=== PATIENT | female | born 2005 | race Two or more races ===

== ENCOUNTER 2023-09-30 12:48 | Emergency (ER) | payer MEDICAID ==
[~2023-09-30] VITALS: Ht 165.1 cm; Wt 95.8 kg
[2023-09-30 14:20] LABS: Basophils # (auto) 0.1 10 ^3/uL (0-0.2); Basophils % (auto) 0.5 % (0.0-2.0); Eosinophils # (auto) 0 10 ^3/uL (0-0.8); Eosinophils % (auto) 0.3 % (0.0-7.0); Hematocrit 40.8 % (36.0-46.0); Hemoglobin 14.6 g/dL (12.2-16.2); Lymphocytes # (auto) 2.2 10 ^3/uL (0.4-5.4); Lymphocytes % (auto) 13.7 % (10.0-50.0); Mean Corpuscular Hgb Conc. 35.7 g/dL (32.0-36.0); Mean Corpuscular Volume 81.1 fL (80.0-100.0); Monocytes # (auto) 0.8 10 ^3/uL (0-1.3); Monocytes % (auto) 5.3 % (0.0-12.0); Neutrophils # (auto) 12.6 10 ^3/uL (1.6-8.6); Neutrophils % (auto) 80.2 % (37.0-80.0); Nucleated Red Blood Cells % 0.1 %; Red Blood Cells 5.03 10^6/uL (4.0-5.20); Red Cell Distribution Width 13.8 % (11.8-14.3); White Blood Cell 15.7 10^3/uL (4.4-10.8)
[2023-09-30 14:27] LABS: Urine Bacteria None Seen /hpf (None Seen)
[2023-09-30 14:43] LABS: Urine Blood Negative /uL (Negative); Urine Clarity Clear (Clear); Urine Color Yellow (Yellow); Urine Mucus FEW (None Seen); Urine Protein, UAD Negative (Negative); Urine Urobilinogen Normal (Negative); Urine WBC 13 /hpf (0 - 5); Urine pH 5.5 (5.0-9.0)
[2023-09-30 16:25] VITALS: BP 111/64; PULSE 82; RESP 16; TEMP 98.2; O2SAT 97
== END 2023-09-30 16:45 | disposition home or self-care (01) ==
LOC: ER 12:48
DX: O20.0 Threatened abortion (principal); R10.2 Pelvic and perineal pain; Z3A.01 Less than 8 weeks gestation of pregnancy
CPT/HCPCS: 36415; 76801; 81001; 81025; 84702; 85025

== ENCOUNTER 2024-01-05 07:44 | Observation (INO) | payer MEDICAID ==
[~2024-01-05] VITALS: Ht 165.1 cm; Wt 91.6 kg
[2024-01-05] MEDS ORDERED: PREN-96 PO (08:50)
== END 2024-01-05 09:34 | disposition home or self-care (01) ==
LOC: LDRP 07:44
PROVIDERS: ADMIT Obstetrics & Gynecology; ATTEND Obstetrics & Gynecology
DX: O34.62 Maternal care for abnormality of vagina, second trimester (principal); N89.8 Other specified noninflammatory disorders of vagina; Z79.899 Other long term (current) drug therapy; Z98.890 Other specified postprocedural states; Z3A.21 21 weeks gestation of pregnancy
CPT/HCPCS: 59025; 76815; 81002; 94760; G0378

== ENCOUNTER 2024-03-01 20:56 | Observation (INO) | payer MEDICAID ==
[~2024-03-01 20:56] MED LIST: PREN-96 PO
--- NOTE | 2024-03-01 22:08 | DVHDS2 ---
Physician Discharge Progress N Final Diagnosis: UTI Problems List: (1) UTI (urinary tract infection) during (2) 29 weeks gestation of Operations or Procedures: Operations or Procedures 18yo IUP@29.3wks presents to OB triage with c/o DFM and only drank 3 cups of water today. Denies UCs/VB. PNC with Dr. Rogers, uncomplicated. VSS UA: +nitrites NST reactive TOCO: no UCs PO hydrated FKC/PTL precautions reviewed. Rx sent for macrobid. Condition on Discharge: Stable Disposition: Home Discharge Instructions: Diet: Regular Activity: No Restrictions, As Tolerated Medications: see med list Follow Up Care: Specialist: f/u with Dr. Rogers as scheduled Discharge Statement: "Patient was advised to return to the ER or call 911 if any headaches, dizziness, shortness of breath, chest pain, abdominal pain, bleeding, fevers, or worsening of medical condition. Patient was counseled about treatment plan, medications, possible side effects, patientverbalized understanding. All questions were answered to the best of my ability. This discharge took greater then 30 minutes in planning, reviewing documentation, counseling the patient, and discussing with other team members." KEENAN ARAIZA CNM Mar 01, 2024 22:08
[2024-03-01] MEDS ORDERED: NITR-87 PO (22:09)
== END 2024-03-01 22:25 | disposition home or self-care (01) ==
LOC: LDRP 20:56
PROVIDERS: ADMIT Obstetrics & Gynecology; ATTEND Obstetrics & Gynecology
DX: O23.43 Unspecified infection of urinary tract in pregnancy, third trimester (principal); N39.0 Urinary tract infection, site not specified; Z3A.29 29 weeks gestation of pregnancy; Z79.899 Other long term (current) drug therapy
CPT/HCPCS: 59025; 81002; 94760; G0378

== ENCOUNTER 2024-04-17 12:05 | Observation (INO) | payer MEDICAID ==
[~2024-04-17 12:05] MED LIST changes: +NITR-87 PO
--- NOTE | 2024-04-17 13:34 | DVH ---
BIOPHYSICAL PROFILE HISTORY: Late entry/limited PNC TECHNIQUE: Multiple transabdominal real-time grayscale sonographic images through the gravid uterus of the fetus with duplex Doppler color flow and M-mode spectral analysis FINDINGS: BIOPHYSICAL PROFILE: breathing score: 2 movement score: 2 tone score: 2 Quantitative JOSH score: 2 (JOSH: 11.9 Cm.) Total score: 8 The cervix was not seen Single live fetus in cephalic presentation. heart rate 168 beats per minute. Grade II posterior placenta without previa or abruption Single live fetus at 36 weeks 3 days Biophysical profile score 8/8 corresponding to an DESTINEE of 2-28-25 Estimated weight 2888 g IMPRESSION: Biophysical profile score: 8
[2024-04-17 14:02] LABS: Basophils # (auto) 0 10 ^3/uL (0-0.2); Basophils % (auto) 0.3 % (0.0-2.0); Eosinophils # (auto) 0.1 10 ^3/uL (0-0.8); Eosinophils % (auto) 0.4 % (0.0-7.0); Hematocrit 40.8 % (36.0-46.0); Hemoglobin 14.4 g/dL (12.2-16.2); Lymphocytes # (auto) 1.5 10 ^3/uL (0.4-5.4); Lymphocytes % (auto) 10.5 % (10.0-50.0); Mean Corpuscular Hemoglobin 28.8 pg (28.0-32.0); Mean Corpuscular Hgb Conc. 35.2 g/dL (32.0-36.0); Mean Corpuscular Volume 81.8 fL (80.0-100.0); Monocytes # (auto) 0.9 10 ^3/uL (0-1.3); Monocytes % (auto) 6.1 % (0.0-12.0); Neutrophils # (auto) 11.8 10 ^3/uL (1.6-8.6); Neutrophils % (auto) 82.7 % (37.0-80.0); Nucleated Red Blood Cells % 0.2 %; Platelet Count (auto) 207 10^3/uL (140-450); Red Blood Cells 4.99 10^6/uL (4.0-5.20); Red Cell Distribution Width 14.7 % (11.8-14.3); White Blood Cell 14.2 10^3/uL (4.4-10.8)
[2024-04-17 14:24] LABS: Alanine Aminotransferase 11 U/L (7-40); Albumin 3.8 g/dL (3.2-4.8); Anion Gap 11 (5-15); Aspartate Aminotransferase 21 U/L (13-40); BUN/Creatinine Ratio 9.3 (10.0-20.0); Calcium 10.1 mg/dL (8.7-10.4); Carbon Dioxide 21 mmol/L (20-31); Chloride 105 mmol/L (98-107); Glucose 79 mg/dL (74-106); Potassium 4.1 mmol/L (3.5-5.1); Sodium 137 mmol/L (136-145); Uric Acid 5.5 mg/dL (3.1-7.8)
[2024-04-17 14:25] LABS: Alkaline Phosphatase 178 U/L (46-116); Bilirubin, Total 0.6 mg/dL (0.2-1.0); Blood Urea Nitrogen 5 mg/dL (9-23); Total Protein 6.3 g/dL (5.7-8.2)
[2024-04-17 15:02] LABS: INR 0.95 (0.9-1.15); Partial Thromboplastin Time 28.5 SEC (24.5-34.5); Prothrombin Time 10.1 sec (9.3-11.8)
[2024-04-17 15:05] LABS: Urine Bacteria None Seen /hpf (None Seen)
[2024-04-17 15:21] LABS: Urine Blood Negative /uL (Negative); Urine Clarity Clear (Clear); Urine Color Light-Yellow (Yellow); Urine Protein, UAD Negative (Negative); Urine Specific Gravity 1.014 (1.001-1.035); Urine Squamous Epithelial Cell FEW /hpf (<5); Urine Urobilinogen Normal (Negative); Urine WBC 2 /HPF (0-5); Urine pH 6.5 (5.0-9.0)
[2024-04-17 15:33] LABS: Protein, Urine 19.4 mg/dL (1-14)
[2024-04-17 15:36] LABS: Creatinine, Urine 73.79 mg/dL (30.0-125.0); Urine Protein/Creatinine Ratio 0.26
--- NOTE | 2024-04-17 21:30 | DVHDS2 ---
Physician Discharge Progress N Final Diagnosis: Late entry/limited PNC Operations or Procedures: Operations or Procedures NST and BPP/ Ultrasound OB limited PIH labs Commentary: Commentary all testing normal BP's normal Condition on Discharge: Stable Disposition: Home Discharge Instructions: Diet: Regular Activity: No Restrictions, As Tolerated Follow Up/Referral: as scheduled, per Dr. Rogers Medications: N/A Follow Up Care: Discharge Statement: "Patient was advised to return to the ER or call 911 if any headaches, dizziness, shortness of breath, chest pain, abdominal pain, bleeding, fevers, or worsening of medical condition. Patient was counseled about treatment plan, medications, possible side effects, patientverbalized understanding. All questions were answered to the best of my ability. This discharge took greater then 30 minutes in planning, reviewing documentation, counseling the patient, and discussing with other team members." JUVENAL CARABALLO DO Apr 17, 2024 21:30
== END 2024-04-17 15:13 | disposition home or self-care (01) ==
LOC: LDRP 12:05
PROVIDERS: ADMIT Obstetrics & Gynecology; ATTEND Obstetrics & Gynecology
DX: O09.33 Supervision of pregnancy with insufficient antenatal care, third trimester (principal); Z98.890 Other specified postprocedural states; Z79.899 Other long term (current) drug therapy; Z3A.36 36 weeks gestation of pregnancy; Z86.2 Personal history of diseases of the blood and blood-forming organs and certain disorders involving the immune mechanism
CPT/HCPCS: 36415; 59025; 76805; 76818; 80053; 81001; 81002; 82570; 84156; 84550; 85025; 85384; 85610; 85730; 87081; 87086; 94760; G0378

== ENCOUNTER 2024-04-19 14:49 | Observation (INO) | payer MEDICAID ==
[2024-04-19] MEDS ORDERED: TERBUTALINE SULFATE 1 MG/ML 1ML VIAL SC SCH (17:00)
[2024-04-19] MEDS ORDERED: NIFEdipine 10 MG CAP PO ONE (17:00)
--- NOTE | 2024-04-19 17:28 | DVH ---
BIOPHYSICAL PROFILE HISTORY: PIH TECHNIQUE: Multiple transabdominal real-time grayscale sonographic images through the gravid uterus of the fetus with duplex Doppler color flow and M-mode spectral analysis Comparison: 04/17/2024 FINDINGS: BIOPHYSICAL PROFILE: breathing score: 2 movement score: 2 tone score: 2 Quantitative JOSH score: 2 (JOSH: 11.5 Cm.) Total score: 8 The cervix is not well-visualized Single live fetus in cephalic presentation. heart rate 144 beats per minute. Posterior placenta without previa or abruption IMPRESSION: Biophysical profile score: 8
--- NOTE | 2024-04-19 18:50 | DVHDS2 ---
Physician Discharge Progress N Final Diagnosis: gestational HTN Operations or Procedures: Operations or Procedures S: 18 y.o. @ 36.3 weeks presents to OB triage due to her BP reading at home of 145/98. Patient denies any visual changes, pain in abdomen, and/or headache. Patient states +FM; denies UCs, LOF, VB O: VSS; normotensive (see chart) UA dip WNL NST reactive Urine P/C ratio 0.26 on 04/17/2024 A: 18 y.o. @ 36.3 weeks Gestation Hypertension P: D/C home kick counts/ PTL precautions/ Pre-e precautions given [address] Rogers consulted, agrees with POC Other Interventions Other Interventions [place] [address] Ph: [phone] DIAGNOSTIC IMAGING Diagnostic Imaging Report : [id number] Signed PATIENT: MAAME CHRISTINECCT: [id number] UNIT: [id number] : 2005 LOC: [facility] ROOM / BED: TRIAGE2 / A AGE / SEX: 18 / F ADM STATUS: ADM IN SERVICE [id number] ORDERING PHYSICIAN: KEENAN ARAIZA CNM PROCEDURE(s): BPP - BIOPHYSICAL PROFILE REASON: [facility] ORDER NUMBER(s): [id number], ACCESSION NUMBER(s): [id number] BIOPHYSICAL PROFILE HISTORY: [facility] TECHNIQUE: Multiple transabdominal real-time grayscale sonographic images through the gravid uterus of the fetus with duplex Doppler color flow and M-mode spectral analysis Comparison: 04/17/2024 FINDINGS: BIOPHYSICAL PROFILE: breathing score: 2 movement score: 2 tone score: 2 Quantitative JOSH score: 2 (JOSH: 11.5 Cm.) Total score: 8 The cervix is not well-visualized Single live fetus in cephalic presentation. heart rate 144 beats per mi nute. Posterior placenta without previa or abruption IMPRESSION: Biophysical profile score: 8 ATED BY: ALICIA JETT DO DICTATED DATE/TIME: 04/19/24 1726 SIGNED BY: ALICIA JETT DO SIGNED DATE/TIME: 04/19/24 1726 Condition on Discharge: Stable Disposition: Home Discharge Instructions: Diet: Regular Activity: No Restrictions, As Tolerated Medications: see med list Follow Up Care: Specialist: Follow up on Wednesday04/22/2024 with 24 hour urine collection Discharge Statement: "Patient was advised to return to the ER or call 911 if any headaches, dizziness, shortness of breath, chest pain, abdominal pain, bleeding, fevers, or worsening of medical condition. Patient was counseled about treatment plan, medications, possible side effects, patientverbalized understanding. All questions were answered to the best of my ability. This discharge took greater then 30 minutes in planning, reviewing documentation, counseling the patient, and discussing with other team members." JORGE LUIS BEST MDWF Apr 19, 2024 18:50
== END 2024-04-19 17:09 | disposition home or self-care (01) ==
LOC: LDRP 14:49 → UNDOADMOB 15:43 → UNDODISOB 17:09
PROVIDERS: ADMIT Obstetrics & Gynecology; ATTEND Obstetrics & Gynecology
DX: O13.3 Gestational [pregnancy-induced] hypertension without significant proteinuria, third trimester (principal); Z3A.36 36 weeks gestation of pregnancy; Z79.899 Other long term (current) drug therapy
CPT/HCPCS: 59025; 76818; 81002; 94760; G0378

== ENCOUNTER 2024-04-22 08:42 | Observation (INO) | payer MEDICAID ==
[2024-04-22 09:34] LABS: Urine Bacteria FEW /hpf (None Seen); Urine Blood Negative /uL (Negative); Urine Color Light-Yellow (Yellow); Urine Protein, UAD Negative (Negative); Urine Specific Gravity 1.014 (1.001-1.035); Urine Squamous Epithelial Cell MOD /hpf (<5); Urine Urobilinogen Normal (Negative); Urine WBC 76 /HPF (0-5)
--- NOTE | 2024-04-22 09:35 | DVHDS2 ---
Physician Discharge Progress N Final Diagnosis: IUP 36 wk gestational HTN Operations or Procedures: Operations or Procedures NST/BPP JOSH Urine prot neg Condition on Discharge: Stable Disposition: Home Discharge Instructions: Diet: Regular Activity: Light activity Follow Up/Referral: As scheduled. Medications: None Follow Up Care: Discharge Statement: "Patient was advised to return to the ER or call 911 if any headaches, dizziness, shortness of breath, chest pain, abdominal pain, bleeding, fevers, or worsening of medical condition. Patient was counseled about treatment plan, medications, possible side effects, patientverbalized understanding. All questions were answered to the best of my ability. This discharge took greater then 30 minutes in planning, reviewing documentation, counseling the patient, and discussing with other team members." Visit Coding OBGYN Date of Service: Apr 22, 2024 Billing Provider: JUVENAL CARABALLO DO PARKING ENFORCEMENT TECHNICIAN Common Visit Codes: 85681-HFA/OBS SAME DATE (MOD) PARKING ENFORCEMENT TECHNICIAN Procedure Codes: 44098-79- NON-STRESS TEST JUVENAL CARABALLO DO Apr 22, 2024 09:34
[2024-04-22 09:36] LABS: Urine Clarity Cloudy (Clear)
[2024-04-22 09:44] LABS: Protein, Urine 20.2 mg/dL (1-14)
[2024-04-22 09:46] LABS: Creatinine, Urine 92.41 mg/dL (30.0-125.0); Urine Protein/Creatinine Ratio 0.22
--- NOTE | 2024-04-22 10:10 | DVH ---
BIOPHYSICAL PROFILE HISTORY: PIH TECHNIQUE: Multiple transabdominal real-time grayscale sonographic images through the gravid uterus of the fetus with duplex Doppler color flow and M-mode spectral analysis FINDINGS: BIOPHYSICAL PROFILE: breathing score: 2 movement score: 2 tone score: 2 Quantitative JOSH score: 2 (JOSH: 10.1 Cm.) Total score: 8.8 Single live fetus in cephalic presentation. heart rate 138 beats per minute. Posterior placenta without previa or abruption. IMPRESSION: 1. Biophysical profile score: 8/8.
[2024-04-22 11:37] LABS: 24 Hr. Total Protein, Urine 131.3 mg/24 Hr (<149.1)
== END 2024-04-22 10:26 | disposition home or self-care (01) ==
LOC: LDRP 08:42
PROVIDERS: ADMIT Obstetrics & Gynecology; ATTEND Obstetrics & Gynecology
DX: O13.3 Gestational [pregnancy-induced] hypertension without significant proteinuria, third trimester (principal); Z98.890 Other specified postprocedural states; Z79.899 Other long term (current) drug therapy; Z3A.36 36 weeks gestation of pregnancy
CPT/HCPCS: 59025; 76818; 81001; 81002; 82570; 84156; 94760; G0378

== ENCOUNTER 2024-04-24 12:04 | Observation (INO) | payer MEDICAID ==
--- NOTE | 2024-04-24 12:56 | DVH ---
BIOPHYSICAL PROFILE HISTORY: PIH TECHNIQUE: Multiple transabdominal real-time grayscale sonographic images through the gravid uterus of the fetus with duplex Doppler color flow and M-mode spectral analysis FINDINGS: BIOPHYSICAL PROFILE: breathing score: 2 movement score: 2 tone score: 2 Quantitative JOSH score: 2 (JOSH: 10.2 Cm.) Total score: 8 The cervix not well visualized. Single live fetus in vertex presentation. heart rate 136 beats per minute. Left lateral placenta without previa or abruption IMPRESSION: Biophysical profile score: 8
--- NOTE | 2024-04-24 17:11 | DVHDS2 ---
Physician Discharge Progress N Final Diagnosis: IUP 37 wk, Gestational HTN Operations or Procedures: Operations or Procedures NST/BPP/JOSH all WNL Condition on Discharge: Stable Disposition: Home Discharge Instructions: Diet: Regular Activity: No Restrictions, As Tolerated Follow Up/Referral: as scheduled Medications: N/A Follow Up Care: Discharge Statement: "Patient was advised to return to the ER or call 911 if any headaches, dizziness, shortness of breath, chest pain, abdominal pain, bleeding, fevers, or worsening of medical condition. Patient was counseled about treatment plan, medications, possible side effects, patientverbalized understanding. All questions were answered to the best of my ability. This discharge took greater then 30 minutes in planning, reviewing documentation, counseling the patient, and discussing with other team members." Visit Coding OBGYN Date of Service: Apr 24, 2024 Billing Provider: JUVENAL CARABALLO DO CUTLET MAKER PORK Common Visit Codes: 19856-KKA/OBS SAME DATE (MOD) C[employer]ER [employer] Procedure Codes: 83895-80- NON-STRESS TEST JUVENAL CARABALLO DO Apr 24, 2024 17:11
== END 2024-04-24 13:30 | disposition home or self-care (01) ==
LOC: LDRP 12:04 → UNDOADMOB 12:04 → LDRP 12:16 → UNDODISOB 13:30
PROVIDERS: ADMIT Obstetrics & Gynecology; ATTEND Obstetrics & Gynecology
DX: O13.3 Gestational [pregnancy-induced] hypertension without significant proteinuria, third trimester (principal); Z98.890 Other specified postprocedural states; Z79.899 Other long term (current) drug therapy; Z3A.37 37 weeks gestation of pregnancy
CPT/HCPCS: 59025; 76818; 81002; 94760; G0378

== ENCOUNTER 2024-04-27 11:25 | Observation (INO) | payer MEDICAID ==
[~2024-04-27 11:25] MED LIST changes: -NITR-87 PO
--- NOTE | 2024-04-27 12:43 | DVH ---
BIOPHYSICAL PROFILE HISTORY: PIH Comparison Study: None TECHNIQUE: Multiple real-time grayscale sonographic images through the gravid uterus of the fetus wi th duplex Doppler color flow and M-mode spectral analysis FINDINGS: BIOPHYSICAL PROFILE: breathing score: 2 movement score: 2 tone score: 2 Quantitative JOSH score: 2 (JOSH: 11.1 Cm.) Total score: 8 The cervix is not visualized Single live fetus in cephalic presentation. heart rate 153 beats per minute. Posterior placenta without previa or abruption IMPRESSION: Biophysical profile score: 8
--- NOTE | 2024-04-28 05:53 | DVHDS2 ---
Physician Discharge Progress N Final Diagnosis: PIH Operations or Procedures: Operations or Procedures NST,SONO Condition on Discharge: Good Disposition: Home Discharge Instructions: Diet: Regular Activity: No Restrictions, As Tolerated Medications: NA Follow Up Care: Specialist: 4D Discharge Statement: "Patient was advised to return to the ER or call 911 if any headaches, dizziness, shortness of breath, chest pain, abdominal pain, bleeding, fevers, or worsening of medical condition. Patient was counseled about treatment plan, medications, possible side effects, patientverbalized understanding. All questions were answered to the best of my ability. This discharge took greater then 30 minutes in planning, reviewing documentation, counseling the patient, and discussing with other team members." Visit Coding OBGYN Date of Service: Apr 27, 2024 Billing Provider: HAIR RUBI DO PHARMACY TECH Common Visit Codes: 30816-KAO/OBS SAME DATE (HIGH) PHARMACY TECH Procedure Codes: 52487-70- NON-STRESS TEST HAIR RUBI DO Apr 28, 2024 05:53
== END 2024-04-27 14:17 | disposition home or self-care (01) ==
LOC: LDRP 11:25
PROVIDERS: ADMIT Obstetrics & Gynecology; ATTEND Obstetrics & Gynecology
DX: O13.3 Gestational [pregnancy-induced] hypertension without significant proteinuria, third trimester (principal); Z3A.37 37 weeks gestation of pregnancy; Z79.899 Other long term (current) drug therapy
CPT/HCPCS: 59025; 76818; 81002; 94760; G0378

== ENCOUNTER 2024-05-04 10:25 | Observation (INO) | payer MEDICAID ==
[2024-05-04 12:09] LABS: Basophils # (auto) 0 10 ^3/uL (0-0.2); Basophils % (auto) 0.3 % (0.0-2.0); Eosinophils # (auto) 0 10 ^3/uL (0-0.8); Eosinophils % (auto) 0.3 % (0.0-7.0); Hematocrit 43.3 % (36.0-46.0); Lymphocytes # (auto) 1.3 10 ^3/uL (0.4-5.4); Lymphocytes % (auto) 9.8 % (10.0-50.0); Mean Corpuscular Hemoglobin 28.4 pg (28.0-32.0); Mean Corpuscular Hgb Conc. 34.5 g/dL (32.0-36.0); Mean Corpuscular Volume 82.2 fL (80.0-100.0); Monocytes # (auto) 0.7 10 ^3/uL (0-1.3); Monocytes % (auto) 5.4 % (0.0-12.0); Neutrophils # (auto) 11.4 10 ^3/uL (1.6-8.6); Neutrophils % (auto) 84.2 % (37.0-80.0); Nucleated Red Blood Cells % 0.1 %; Platelet Count (auto) 201 10^3/uL (140-450); Red Blood Cells 5.27 10^6/uL (4.0-5.20); White Blood Cell 13.6 10^3/uL (4.4-10.8)
[2024-05-04 12:13] LABS: INR 0.92 (0.9-1.15); Partial Thromboplastin Time 27.6 SEC (24.5-34.5); Prothrombin Time 9.8 sec (9.3-11.8)
[2024-05-04 12:16] LABS: Alanine Aminotransferase 16 U/L (7-40); Anion Gap 11 (5-15); Aspartate Aminotransferase 26 U/L (13-40); BUN/Creatinine Ratio 15.1 (10.0-20.0); Bilirubin, Total 0.5 mg/dL (0.2-1.0); Carbon Dioxide 21 mmol/L (20-31); Chloride 105 mmol/L (98-107); Glucose 82 mg/dL (74-106); Potassium 4.3 mmol/L (3.5-5.1); Sodium 137 mmol/L (136-145); Total Protein 5.9 g/dL (5.7-8.2); Uric Acid 6.2 mg/dL (3.1-7.8)
[2024-05-04 12:24] LABS: Alkaline Phosphatase 192 U/L (46-116); Blood Urea Nitrogen 8 mg/dL (9-23)
[2024-05-04 13:16] LABS: Protein, Urine 19.8 mg/dL (1-14)
[2024-05-04 13:19] LABS: Creatinine, Urine 109.38 mg/dL (30.0-125.0); Urine Protein/Creatinine Ratio 0.18
--- NOTE | 2024-05-04 15:43 | DVHDS2 ---
Physician Discharge Progress N Final Diagnosis: pih ruled out Operations or Procedures: Operations or Procedures nst,sono 38wks Consultations: Consultations seen by sushma Condition on Discharge: Good Disposition: Home Discharge Instructions: Diet: Regular Activity: No Restrictions, As Tolerated Medications: na Follow Up Care: Specialist: fu in 2days Discharge Statement: "Patient was advised to return to the ER or call 911 if any headaches, dizziness, shortness of breath, chest pain, abdominal pain, bleeding, fevers, or worsening of medical condition. Patient was counseled about treatment plan, medications, possible side effects, patientverbalized understanding. All questions were answered to the best of my ability. This discharge took greater then 30 minutes in planning, reviewing documentation, counseling the patient, and discussing with other team members." Visit Coding OBGYN Date of Service: May 04, 2024 Billing Provider: HAIR RUBI DO GROUP PRESIDENT Common Visit Codes: 83244-MSC/OBS DISCH DAY <30MIN GROUP PRESIDENT Consultation Codes: 88018-AGIORFHAN CONSULT <40MIN GROUP PRESIDENT Procedure Codes: 83016-13- NON-STRESS TEST HAIR RUBI DO May 04, 2024 15:43
== END 2024-05-04 14:06 | disposition home or self-care (01) ==
LOC: UNDOADMOB 10:25 → LDRP 10:25
PROVIDERS: ADMIT Obstetrics & Gynecology; ATTEND Obstetrics & Gynecology
DX: O13.3 Gestational [pregnancy-induced] hypertension without significant proteinuria, third trimester (principal); Z3A.38 38 weeks gestation of pregnancy; Z79.899 Other long term (current) drug therapy; Z98.890 Other specified postprocedural states
CPT/HCPCS: 36415; 59025; 80053; 81002; 82570; 84156; 84550; 85025; 85610; 85730; 94760; G0378

== ENCOUNTER 2024-05-06 06:54 | Observation (INO) | payer MEDICAID ==
--- NOTE | 2024-05-06 11:15 | DVH ---
BIOPHYSICAL PROFILE HISTORY: PIH TECHNIQUE: Multiple real-time grayscale sonographic images through the gravid uterus of the fetus wi th duplex Doppler color flow. FINDINGS: BIOPHYSICAL PROFILE: breathing score: 2 movement score: 2 tone score: 2 Quantitative JOSH score: 2 Total score: 8 out of 8 Single live fetus in cephalic presentation. heart rate 147 beats per minute. Placenta positioned posteriorly. IMPRESSION: 1. Biophysical profile score: 8 out of 8
[2024-05-06 11:55] LABS: Urine Bacteria None Seen /hpf (None Seen)
[2024-05-06 13:32] LABS: Urine Blood Negative /uL (Negative); Urine Mucus FEW (None Seen); Urine Protein, UAD TRACE (Negative); Urine Specific Gravity 1.025 (1.001-1.035); Urine Squamous Epithelial Cell FEW /hpf (<5); Urine Urobilinogen Normal (Negative); Urine WBC 12 /HPF (0-5); Urine pH 6.5 (5.0-9.0)
[2024-05-06 13:33] LABS: Urine Clarity EX. TURBID (Clear); Urine Color Yellow (Yellow)
[2024-05-06 15:14] LABS: 24 Hr. Total Protein, Urine 236.4 mg/24 Hr (<149.1); Protein, Urine 19.7 mg/dL (1-14)
--- NOTE | 2024-05-07 13:00 | DVHDS2 ---
Discharge Summary Date of Admission May 06, 2024 at 10:09 Date of Discharge: May 06, 2024 Admitting Diagnosis -induced hypertension, intrauterine Wounds: n/a Labs/Diagnostic Data: Laboratory Results Test 05/06/24 11:53 05/06/24 10:17 Urine Color Yellow (Yellow) Urine Clarity Ex. turbid (Clear) Urine pH 6.5 (5.0-9.0) Urine Specific Bruin 1.025 (1.001-1.035) Urine Protein Trace (Negative) Urine Ketones Negative (Negative) Urine Blood Negative /uL (Negative) Urine Nitrite Negative (Negative) Urine Bilirubin Negative (Negative) Urine Urobilinogen Normal mg/dL (Negative) Urine Leukocyte Esterase 2+ /uL (Negative) Urine RBC 2 /hpf (0 - 4) Urine Microscopic WBC 12 /HPF (0-5) Urine Squamous Epithelial Cells Few /hpf (<5) Urine Bacteria None seen /hpf (None Seen) Urine Mucus Few (None Seen) Urine Glucose Normal mg/dL (Normal) Urine Creatinine mg/dL (30.0-125.0) Creatinine Clearance mL/min (75-115) Urine Total Protein 24 Hour 236.4 mg/24 Hr (<149.1) Urine Protein/Creatinine Ratio Urine Total Protein 19.7 mg/dL (1-14) Creatinine mg/dL (0.550-1.02) Other Laboratory Tests 05/06/24 10:17 Brief Hx & Hospital Course: Patient admitted to turn in her 24 urine be evaluated and assessment Consults/Reason for consult PH intrauterine Operations or Procedures n/a Condition at Discharge: Good Final Diagnosis/Problems List Intrauterine stable PH Discharge Disposition: Home SNF Discharge Will this Physician continue t: No Discharge Instruct/Medications Diet: Regular Activity: No Restrictions, As Tolerated Activity comment: Kick counts labor precautions and PH precautions Follow Up/Referral: Biweekly NST Discharge Statement: "Patient was advised to return to the ER or call 911 if any headaches, dizziness, shortness of breath, chest pain, abdominal pain, bleeding, fevers, or worsening of medical condition. Patient was counseled about treatment plan, medications, possible side effects, patientverbalized understanding. All questions were answered to the best of my ability. This discharge took greater then 30 minutes in planning, reviewing documentation, counseling the patient, and discussing with other team members." DME: Diagnosis: PH intrauterine ASSESSMENT ASSESSMENT Assessment Visit Coding OBGYN Date of Service: May 06, 2024 Billing Provider: AMANDA ERAZO DO ORDER ENTRY TECHNICIAN Common Visit Codes: 08441-[id number] INP/OBS CARE(MOD), 20750-TXC/OBS SAME DATE (LOW), 43408-JUV/OBS DISCH DAY <30MIN ORDER ENTRY TECHNICIAN Procedure Codes: 53224-14- NON-STRESS TEST AMANDA ERAZO DO May 07, 2024 13:00
== END 2024-05-06 12:54 | disposition home or self-care (01) ==
LOC: LDRP 10:09
PROVIDERS: ADMIT Obstetrics & Gynecology; ATTEND Obstetrics & Gynecology
DX: O13.3 Gestational [pregnancy-induced] hypertension without significant proteinuria, third trimester (principal); Z98.890 Other specified postprocedural states; Z79.899 Other long term (current) drug therapy; Z3A.38 38 weeks gestation of pregnancy
CPT/HCPCS: 59025; 76818; 81001; 81002; 82570; 82575; 84156; G0378

== ENCOUNTER 2024-05-09 06:19 | Inpatient (IN) | payer MEDICAID ==
[~2024-05-09] VITALS: Ht 167.6 cm; Wt 112.0 kg
[2024-05-09] MEDS ORDERED: NALBUPHINE HCL 10 MG/1ml INJECTION IV PRN (08:00)
[2024-05-09] MEDS: LACTATED RINGER'S 1,000 ML IV SCH (08:00)
[2024-05-09] MEDS ORDERED: LIDOCAINE 2%HCL (LOCAL ANESTH.) INJ 20ML MDV IJ PRN (08:00)
[2024-05-09 08:31] LABS: Urine Bacteria None Seen /hpf (None Seen)
[2024-05-09 08:36] LABS: Basophils # (auto) 0 10 ^3/uL (0-0.2); Basophils % (auto) 0.3 % (0.0-2.0); Eosinophils # (auto) 0.1 10 ^3/uL (0-0.8); Eosinophils % (auto) 0.6 % (0.0-7.0); Hematocrit 44.5 % (36.0-46.0); Lymphocytes # (auto) 1.2 10 ^3/uL (0.4-5.4); Lymphocytes % (auto) 9.5 % (10.0-50.0); Mean Corpuscular Hemoglobin 27.9 pg (28.0-32.0); Mean Corpuscular Hgb Conc. 33.6 g/dL (32.0-36.0); Monocytes # (auto) 0.7 10 ^3/uL (0-1.3); Monocytes % (auto) 5.3 % (0.0-12.0); Neutrophils # (auto) 10.4 10 ^3/uL (1.6-8.6); Neutrophils % (auto) 84.3 % (37.0-80.0); Nucleated Red Blood Cells % 0.2 %; Platelet Count (auto) 189 10^3/uL (140-450); Red Blood Cells 5.37 10^6/uL (4.0-5.20); White Blood Cell 12.4 10^3/uL (4.4-10.8)
[2024-05-09 08:52] LABS: INR 0.92 (0.9-1.15); Partial Thromboplastin Time 27.8 SEC (24.5-34.5); Prothrombin Time 9.8 sec (9.3-11.8)
[2024-05-09 08:53] LABS: Urine Blood Negative /uL (Negative); Urine Clarity Turbid (Clear); Urine Color Light-Yellow (Yellow); Urine Protein, UAD Negative (Negative); Urine Specific Gravity 1.017 (1.001-1.035); Urine Squamous Epithelial Cell FEW /hpf (<5); Urine Urobilinogen Normal (Negative); Urine WBC 12 /HPF (0-5)
[2024-05-09 08:55] LABS: Alanine Aminotransferase 21 U/L (7-40); Albumin 4.2 g/dL (3.2-4.8); Anion Gap 13 (5-15); Aspartate Aminotransferase 25 U/L (13-40); BUN/Creatinine Ratio 11.8 (10.0-20.0); Bilirubin, Total 0.4 mg/dL (0.2-1.0); Calcium 9.7 mg/dL (8.7-10.4); Chloride 105 mmol/L (98-107); Potassium 3.8 mmol/L (3.5-5.1); Sodium 138 mmol/L (136-145); Total Protein 6.4 g/dL (5.7-8.2)
[2024-05-09 08:57] LABS: Alkaline Phosphatase 193 U/L (46-116); Blood Urea Nitrogen 8 mg/dL (9-23); Carbon Dioxide 20 mmol/L (20-31); Glucose 160 mg/dL (74-106)
[2024-05-09 08:57] LABS: Amphetamine Screen, Urine Neg (NEGATIVE); Barbiturate Scree,Urine Neg (NEGATIVE); Benzodiazephine Screen, Urine Neg (NEGATIVE); Cannabinoid Screen, Urine Neg (NEGATIVE); Cocaine Screen, Urine Neg (NEGATIVE); Opiate Scree,Urine Neg (NEGATIVE); Phencyclidine Screen, Urine Neg (NEGATIVE)
[2024-05-09 10:16] LABS: Protein, Urine 21.5 mg/dL (1-14)
[2024-05-09 10:19] LABS: Creatinine, Urine 87.01 mg/dL (30.0-125.0); Urine Protein/Creatinine Ratio 0.25
[2024-05-09] MEDS: LABETALOL HCL 200 MG TAB PO SCH (11:13)
[2024-05-09] MEDS: miSOPROStol 50 MCG per PRE-CUT 1/2 TAB PO PRN (12:35)
--- NOTE | 2024-05-09 14:48 | DVHHP2 ---
OB CC & HPI Date Date of Admission: May 09, 2024 Patient Identification: : 1 Para: 0 EDC: May 14, 2024 EGA: 39.2wks Chief Complaints: Reason for admission: induction of labor (for PIH per Dr Rogers) Admission Nurse Assessment Rev: Yes History of Present Complaints 18yo IUP@39.2wks presents for scheduled IOL for PIH. Denies UCs/LOF/VB/JOHNSON/vision changes/RUQ pain. Endorses +FM. PNC: Routine PNC with Dr Rogers at [facility], adequate visits. GTT wnl, dating based on LMP c/w 6 weeks sono, GBS negative. Past Medical History Cardiac: No pertinent Hx Pulmonary: No pertinent Hx Central Nervous System: No pertinent Hx GI: No pertinent Hx Hemotology/Oncology: No pertinent Hx Hepatobiliary: No pertinent Hx Psychiatric: No pertinent Hx Musculoskeletal: No pertinent Hx Rheumotologic: No pertinent Hx Infectious Disease: No peritnent Hx ENT: No pertinent Hx Renal/: No pertinent Hx Endocrine: No pertinent Hx Dermatology: No pertinent Hx Past Surgical History: No pertinent Hx OB History OB History Care: Good Care Ultrasounds: Normal mid trimester US Obstetrical Complications: Other (PIH) Medical Complications: None Allergies: Coded Allergies: NO KNOWN ALLERGIES (Unverified , 01/05/24) Home Meds Reported Medications Vit W/ Ferrous Fumara ( One Daily) Daily Tab, 1 TAB PO DAILY, #30 TAB 11 Refills 01/05/24 Current Medications Current Medications Medications (Trade) Dose Ordered Sig/Nidhi Route PRN Reason Start Time Stop Time Status Last Admin Lactated Ringer's 1,000 ml @ 125 mls/hr Q8H IV 05/09/24 08:00 Nalbuphine HCl (Nubain) 10 mg Q4HP PRN IV MODERATE PAIN (4-6 PAIN SCALE) 05/09/24 08:00 Witch Brigida (Tucks) 1 pad PRN PRN TOP PERINEAL AREA DISCOMFORT 05/09/24 08:00 Sodium Lauryl Sulfate (Phisoderm) 240 ml PRN PRN TOP PERINEAL AREA DISCOMFORT 05/09/24 08:00 Benzocaine (Dermoplast) 1 applic PRN PRN TOP PERINEAL AREA DISCOMFORT 05/09/24 08:00 Lidocaine HCl (Xylocaine) 20 ml ONCE PRN IJ PERINEAL AREA DISCOMFORT 05/09/24 08:00 Misoprostol (Cytotec) 50 mcg Q4HPRN PRN PO CERVICAL RIPENING 05/09/24 10:30 05/09/24 12:35 Labetalol HCl (Normodyne Tablet) 200 mg Q12HR PO 05/09/24 11:00 05/09/24 11:13 Family & Social History Family/Social History Past Family/Social History: Mother HTN Blood Type: O+ Rubella: immune RPR/VDRL: Negative GBS Status: Negative HBsAG: Negative Review of Systems Constitutional: No symptom reported Ears, Nose, & Throat: No symptom reported Eyes: No symptom reported Pulmonary/Respiratory: No symptom reported Cardiovascular: No symptom reported Gastrointestinal: No symptom reported Genitourinary: No symptom reported Musculoskeletal: No symptom reported Skin: No symptom reported Psychiatric: No symptom reported Endocrine: No symptom reported Hemotologic/Lymphatic: No symptom reported OB Admission Exam Physical Exam Vitals: Vital Signs Date Time Temp Pulse Resp B/P (MAP) Pulse Ox O2 Delivery O2 Flow Rate FiO2 05/09/24 11:13 86 136/84 HEENT: TMs Normal, Fontanelles Normal, Nasal Mucosa Normal, Eyes non-injected, Oropharynx Normal, PERRLA, Moist Membranes, EOMI Heart: Rhythm Normal Lungs: Clear Abdomen: Gravid Extremities: Normal Reflexes: Normal Pelvic Exam: Done by RN Cervical Dilatation: 1cm Effacement: 0% Station: -3 Membranes: Intact Heart Rate: 150's Accelerations: Accelerations Present Decelerations: No Decelerations Medical Records Receptionist Variability: Average (6-25) Contractions on Admission: None OB Plan Plan Admitting Diagnosis: 18yo IUP@39.2wks Induction of labor for PIH Category I EFM Intact membranes GBS negative Plan: Induction (for PIH per Dr Rogers) Induction Methd: Misoprostol protocol Other Plan: Admit to L&D Informed consent obtained Discussed risks, benefits, alternatives of IOL for PIH with pt. Pt consents to IOL with PO cytotec. monitoring per order Routine labs ordered Pain mgmt PRN Frequent position changes in and out of bed encouraged Limit SVE unless necessary Intrauterine resuscitation PRN Anticipate CNM co-managing care with Dr. Rogers, agrees with POC. Dr Rogers ordered labetalol 200mg PO BID. BP parameters given to RN, to call Dr Rogers if SBP >160 and/or DBP >95 Visit Coding OBGYN Date of Service: May 09, 2024 Billing Provider: KEENAN ARAIZA CNM [employer] Common Visit Codes: 03319-AQBKJBC INP/OBS CARE (HIGH) ZEINA STEWART STUDENTMDW May 09, 2024 14:48
[2024-05-09] MEDS ORDERED: TERBUTALINE SULFATE 1 MG/ML 1ML VIAL SC PRN (16:30)
--- NOTE | 2024-05-09 16:55 | DVHPN2 ---
[facility] Labor Progress Note Date and Time Seen Date Seen: May 09, 2024 Time Seen: 16:34 Subjective Patient reports: No new complaints Objective Vital Signs VSS, see chart Monitoring Method Monitoring Method: External Heart Rate Heart Rate Baseline: 140 Heart Rate Variability: Moderate Presence of FHR Accelerations: Yes Presence of FHR Decelerations: Yes Heart Rate Type of Decel: Late Decelerations (x1) Are all 5 Components of the FH: Yes Contractions Contractions Frequency: Occasional (q 2-6 min) Duration of Contraction: 60 Contractions Intensity: Mild Contractions Resting Tone: Relaxed Membranes Membranes: Intact Vaginal Exam Vag Exam Deferred: No Vaginal Exam Dilation: 3 Vaginal Exam Effacement: 60 Vaginal Exam Station: -3 Vaginal Exam Presentation: VTX Vaginal Exam Show: None Medications Medications - Pitocin: No Medications - Pain Medications: PRN Medication - Epidural: No Medication - Other s/p PO cytotec x1 Lab Results Lab Results Vital Signs Date Time Temp Pulse Resp B/P (MAP) Pulse Ox O2 Delivery O2 Flow Rate FiO2 05/09/24 12:13 93 134/78 Current Medications Medications (Trade) Dose Ordered Sig/Nidhi Start Time Stop Time Status Last Admin Dose Admin Lactated Ringer's 1,000 ml @ 125 mls/hr Q8H 05/09/24 08:00 Nalbuphine HCl (Nubain) 10 mg Q4HP PRN 05/09/24 08:00 Deja Allred (Tucks) 1 pad PRN PRN 05/09/24 08:00 05/09/24 17:04 1 PAD Sodium Lauryl Sulfate (Phisoderm) 240 ml PRN PRN 05/09/24 08:00 05/09/24 17:04 240 ML Benzocaine (Dermoplast) 1 applic PRN PRN 05/09/24 08:00 05/09/24 17:04 1 APPLIC Lidocaine HCl (Xylocaine) 20 ml ONCE PRN 05/09/24 08:00 Misoprostol (Cytotec) 50 mcg Q4HPRN PRN 05/09/24 10:30 05/09/24 12:35 50 MCG Labetalol HCl (Normodyne Tablet) 200 mg Q12HR 05/09/24 11:00 05/09/24 11:13 200 MG Oxytocin 1,000 ml @ 6 ml/hr Q24H 05/09/24 16:30 Terbutaline Sulfate (Brethine Inj) 0.25 mg ONCE PRN 05/09/24 16:30 Oxytocin 500 ml @ 999 mls/hr Q31M ONCE 05/09/24 16:30 05/09/24 17:00 DC Oxytocin 500 ml @ 125 mls/hr Q4H ONCE 05/09/24 17:00 05/09/24 20:59 DC Naloxone HCl (Narcan) 0.2 mg PRN ONCE 05/09/24 18:30 05/09/24 18:43 DC Ephedrine Sulfate (ePHEDrine SULFATE) 10 mg PRN ONCE 05/09/24 18:30 05/09/24 18:43 DC Fentanyl Citrate 100 mcg ONCE ONCE 05/09/24 18:30 05/09/24 18:43 DC Lidocaine HCl (Xylocaine-Pf 2% Injection) 1 ml ONCE ONCE 05/09/24 18:30 05/09/24 18:43 DC Lactated Ringer's 1,000 ml @ 1,000 mls/hr Q1H ONCE 05/09/24 18:30 05/09/24 19:29 DC Famotidine (Pepcid Injection) 20 mg ONCE ONCE 05/09/24 20:00 05/09/24 20:06 DC Diphenhydramine HCl (Benadryl Injection) 25 mg Q6HP PRN 05/09/24 20:00 Laboratory Tests Test 05/09/24 08:16 05/09/24 08:00 Range/Units White Blood Count 12.4 H 4.4-10.8 10^3/uL Red Blood Count 5.37 H 4.0-5.20 10^6/uL Hemoglobin 15.0 12.2-16.2 g/dL Hematocrit 44.5 36.0-46.0 % Mean Corpuscular Volume 83.0 80.0-100.0 fL Mean Corpuscular Hemoglobin 27.9 L 28.0-32.0 pg Mean Corpuscular Hemoglobin Concent 33.6 32.0-36.0 g/dL Red Cell Distribution Width 15.0 H 11.8-14.3 % Platelet Count 189 140-450 10^3/uL Mean Platelet Volume 9.7 6.9-10.8 fL Neutrophils (%) (Auto) 84.3 H 37.0-80.0 % Lymphocytes (%) (Auto) 9.5 L 10.0-50.0 % Monocytes (%) (Auto) 5.3 0.0-12.0 % Eosinophils (%) (Auto) 0.6 0.0-7.0 % Basophils (%) (Auto) 0.3 0.0-2.0 % Neutrophils # (Auto) 10.4 H 1.6-8.6 10 ^3/uL Lymphocytes # (Auto) 1.2 0.4-5.4 10 ^3/uL Monocytes # (Auto) 0.7 0-1.3 10 ^3/uL Eosinophils # (Auto) 0.1 0-0.8 10 ^3/uL Basophils # (Auto) 0 0-0.2 10 ^3/uL Nucleated Red Blood Cells 0.2 % Prothrombin Time 9.8 9.3-11.8 sec Prothrombin Time INR 0.92 0.9-1.15 Activated Partial Thromboplast Time 27.8 24.5-34.5 SEC Sodium Level 138 136-145 mmol/L Potassium Level 3.8 3.5-5.1 mmol/L Chloride Level 105 98-107 mmol/L Carbon Dioxide Level 20 20-31 mmol/L Anion Gap 13 5-15 Blood Urea Nitrogen 8 L 9-23 mg/dL Creatinine 0.68 0.550-1.02 mg/dL Glomerular Filtration Rate Calc 128 >90 mL/min BUN/Creatinine Ratio 11.8 10.0-20.0 Serum Glucose 160 H 74-106 mg/dL Uric Acid 5.7 3.1-7.8 mg/dL Calcium Level 9.7 8.7-10.4 mg/dL Total Bilirubin 0.4 0.2-1.0 mg/dL Aspartate Amino Transferase (AST) 25 13-40 U/L Alanine Aminotransferase (ALT) 21 7-40 U/L Alkaline Phosphatase 193 H 46-116 U/L Total Protein 6.4 5.7-8.2 g/dL Albumin 4.2 3.2-4.8 g/dL Rapid Plasma Reagin Pending Treponema pallidum Ab (TP-PA) Pending Hepatitis B Surface Antigen Negative Negative Hepatitis C Antibody Negative Negative Urine Color Light-yellow Yellow Urine Clarity Turbid H Clear Urine pH 6.0 5.0-9.0 Urine Specific [place] 1.017 1.001-1.035 Urine Protein Negative Negative Urine Ketones Negative Negative Urine Blood Negative Negative /uL Urine Nitrite Negative Negative Urine Bilirubin Negative Negative Urine Urobilinogen Normal Negative mg/dL Urine Leukocyte Esterase 2+ Negative /uL Urine RBC <1 0 - 4 /hpf Urine Microscopic WBC 12 H 0-5 /HPF Urine Squamous Epithelial Cells Few <5 /hpf Urine Bacteria None seen None Seen /hpf Urine Creatinine 87.01 30.0-125.0 mg/dL Urine Protein/Creatinine Ratio 0.25 Urine Glucose Normal Normal mg/dL Urine Total Protein 21.5 H 1-14 mg/dL Urine Opiates Screen Neg NEGATIVE Urine Fentanyl Screen Neg NEGATIVE Urine Barbiturates Screen Neg NEGATIVE Urine Phencyclidine Screen Neg NEGATIVE Urine Amphetamines Screen Neg NEGATIVE Urine Benzodiazepines Screen Neg NEGATIVE Urine Cocaine Screen Neg NEGATIVE Urine Cannabinoids Screen Neg NEGATIVE Assessment Assessment 18yo IUP@39.2wks Induction of Labor for PIH Category II EFM Intact Membranes GBS negative Plan Plan Discussed placing Cooks balloon and IV Pitocin. Pt agrees with POC after epidural placement. monitoring per order Frequent position changes in bed encouraged Limit SVE unless necessary Intrauterine resuscitation PRN Anticipate CNJanice co-managing with Dr Rogers, who is managing PIH Plan discussed with: Patient, Other (Partner) Visit Coding OBGYN Date of Service: May 09, 2024 Billing Provider: KEENAN ARAIZA CNM SHIP ENGINES OPERATING ENGINEER Common Visit Codes: [id number] INP/OBS CARE(HIGH) ZEINA STEWART STUDENTMDW May 09, 2024 16:55
[2024-05-09] MEDS: WITCH HAZEL-GLYCERIN PAD TOP PRN (17:04)
[2024-05-09] MEDS: PHISODERM TOP SOLN 240ML BTL TOP PRN (17:04)
[2024-05-09] MEDS: DERMOPLAST 60ML BOTTLE TOP PRN (17:04)
[2024-05-09] MEDS: NALOXONE HCL 0.4 MG/ML VIAL IV ONE (18:30)
[2024-05-09] MEDS: LACTATED RINGER'S 1,000 ML IV ONE (18:30)
[2024-05-09] MEDS: LIDOCAINE HCL 2 %PF INJ 10ML AMP IJ ONE (18:30)
[2024-05-09] MEDS: fentaNYL CITRATE 100 MCG/2 ML VL IV ONE (18:30)
[2024-05-09] MEDS: ePHEDrine SULFATE 50 MG/ML AMP IV ONE (18:30)
--- NOTE | 2024-05-09 19:58 | EPIDURAL ---
Anesthesia Procedural Note - Epidural Informed consent obtained?: Yes Medication Administered: Fentanyl 100 mcg Sterile prept drape: Yes Spinal level of insertion: L4-L5 Test dose of lidocaine & Epine: Negative Infusion started: Yes Start time: 19:12 End time: 19:50 Procedure description Procedure description: Called for labor analgesia. Chart reviewed, history taken and patient examined at 191 (BP161/101 HR 99 spO2 97). Patient is here for induction of labor for PIH. Informed consent for CSE obtained. Sitting position, sterile prep and drape. Time out done at 1915. L4-5 space infiltrated with 1% lido. Epidural needle placed with KYLE at 7cm at 1920 (BP 161/73 HR 91 spO2 98). 25G spinal needle +clear CSF. 15mcg fentanyl given IT at 192 (BP 142/76 HR 91 spO2 97). Epidural catheter secured at 12cm at 192. Aspiration and test dose (3cc 1.5% lido with epi) negative at 1927(BP 141/84 HR 93 spO2 98). 85 mcg fentanyl give via epidural at 1930. Patient reports good pain relief. 0.2% ropivacaine infusion started at 1941 (BP 140/80 HR 80 spO2 98). Will follow as needed. AUGUSTA PARRISH MD May 09, 2024 19:58
[2024-05-09] MEDS ORDERED: diphenhdrAMINE HCL 50 MG/1 ML VL IV PRN (20:00)
[2024-05-09] MEDS: FAMOTIDINE (10MG/ML) 2ML VL IV ONE (20:00)
--- NOTE | 2024-05-09 21:39 | DVHPN2 ---
CNM Labor Progress Note Date and Time Seen Date Seen: May 09, 2024 Time Seen: 21:36 Subjective Patient reports: Feels better Subjective Comment Pt resting comfortably after epidural has been placed Pt consents to cooks balloon and IV pitocin now Objective Vital Signs VSS, see chart Monitoring Method Monitoring Method: External Heart Rate Heart Rate Baseline: 145 Heart Rate Variability: Moderate Presence of FHR Accelerations: Yes Presence of FHR Decelerations: No Are all 5 Components of the FH: Yes Contractions Contractions Frequency: Occasional (q 2-7 min) Duration of Contraction: 60 Contractions Intensity: Moderate Contractions Resting Tone: Relaxed Membranes Membranes: Intact Vaginal Exam Vag Exam Deferred: No (Cooks balloon placed, 60mL/60mL of NS) Vaginal Exam Dilation: 3 Vaginal Exam Effacement: 60 Vaginal Exam Station: -3 Vaginal Exam Presentation: VTX Vaginal Exam Show: None Medications Medications - Pitocin: No Medication - Epidural: Yes Medication - Other s/p PO cytotec x1 Lab Results Lab Results Vital Signs Date Time Temp Pulse Resp B/P (MAP) Pulse Ox O2 Delivery O2 Flow Rate FiO2 05/09/24 12:13 93 134/78 Current Medications Medications (Trade) Dose Ordered Sig/Nidhi Start Time Stop Time Status Last Admin Dose Admin Lactated Ringer's 1,000 ml @ 125 mls/hr Q8H 05/09/24 08:00 Nalbuphine HCl (Nubain) 10 mg Q4HP PRN 05/09/24 08:00 Deja Allred (Tucks) 1 pad PRN PRN 05/09/24 08:00 05/09/24 17:04 1 PAD Sodium Lauryl Sulfate (Phisoderm) 240 ml PRN PRN 05/09/24 08:00 05/09/24 17:04 240 ML Benzocaine (Dermoplast) 1 applic PRN PRN 05/09/24 08:00 05/09/24 17:04 1 APPLIC Lidocaine HCl (Xylocaine) 20 ml ONCE PRN 05/09/24 08:00 Misoprostol (Cytotec) 50 mcg Q4HPRN PRN 05/09/24 10:30 05/09/24 12:35 50 MCG Labetalol HCl (Normodyne Tablet) 200 mg Q12HR 05/09/24 11:00 05/09/24 11:13 200 MG Oxytocin 1,000 ml @ 6 ml/hr Q24H 05/09/24 16:30 Terbutaline Sulfate (Brethine Inj) 0.25 mg ONCE PRN 05/09/24 16:30 Oxytocin 500 ml @ 999 mls/hr Q31M ONCE 05/09/24 16:30 05/09/24 17:00 DC Oxytocin 500 ml @ 125 mls/hr Q4H ONCE 05/09/24 17:00 05/09/24 20:59 DC Naloxone HCl (Narcan) 0.2 mg PRN ONCE 05/09/24 18:30 05/09/24 18:43 DC Ephedrine Sulfate (ePHEDrine SULFATE) 10 mg PRN ONCE 05/09/24 18:30 05/09/24 18:43 DC Fentanyl Citrate 100 mcg ONCE ONCE 05/09/24 18:30 05/09/24 18:43 DC Lidocaine HCl (Xylocaine-Pf 2% Injection) 1 ml ONCE ONCE 05/09/24 18:30 05/09/24 18:43 DC Lactated Ringer's 1,000 ml @ 1,000 mls/hr Q1H ONCE 05/09/24 18:30 05/09/24 19:29 DC Famotidine (Pepcid Injection) 20 mg ONCE ONCE 05/09/24 20:00 05/09/24 20:06 DC Diphenhydramine HCl (Benadryl Injection) 25 mg Q6HP PRN 05/09/24 20:00 Laboratory Tests Test 05/09/24 08:16 05/09/24 08:00 Range/Units White Blood Count 12.4 H 4.4-10.8 10^3/uL Red Blood Count 5.37 H 4.0-5.20 10^6/uL Hemoglobin 15.0 12.2-16.2 g/dL Hematocrit 44.5 36.0-46.0 % Mean Corpuscular Volume 83.0 80.0-100.0 fL Mean Corpuscular Hemoglobin 27.9 L 28.0-32.0 pg Mean Corpuscular Hemoglobin Concent 33.6 32.0-36.0 g/dL Red Cell Distribution Width 15.0 H 11.8-14.3 % Platelet Count 189 140-450 10^3/uL Mean Platelet Volume 9.7 6.9-10.8 fL Neutrophils (%) (Auto) 84.3 H 37.0-80.0 % Lymphocytes (%) (Auto) 9.5 L 10.0-50.0 % Monocytes (%) (Auto) 5.3 0.0-12.0 % Eosinophils (%) (Auto) 0.6 0.0-7.0 % Basophils (%) (Auto) 0.3 0.0-2.0 % Neutrophils # (Auto) 10.4 H 1.6-8.6 10 ^3/uL Lymphocytes # (Auto) 1.2 0.4-5.4 10 ^3/uL Monocytes # (Auto) 0.7 0-1.3 10 ^3/uL Eosinophils # (Auto) 0.1 0-0.8 10 ^3/uL Basophils # (Auto) 0 0-0.2 10 ^3/uL Nucleated Red Blood Cells 0.2 % Prothrombin Time 9.8 9.3-11.8 sec Prothrombin Time INR 0.92 0.9-1.15 Activated Partial Thromboplast Time 27.8 24.5-34.5 SEC Sodium Level 138 136-145 mmol/L Potassium Level 3.8 3.5-5.1 mmol/L Chloride Level 105 98-107 mmol/L Carbon Dioxide Level 20 20-31 mmol/L Anion Gap 13 5-15 Blood Urea Nitrogen 8 L 9-23 mg/dL Creatinine 0.68 0.550-1.02 mg/dL Glomerular Filtration Rate Calc 128 >90 mL/min BUN/Creatinine Ratio 11.8 10.0-20.0 Serum Glucose 160 H 74-106 mg/dL Uric Acid 5.7 3.1-7.8 mg/dL Calcium Level 9.7 8.7-10.4 mg/dL Total Bilirubin 0.4 0.2-1.0 mg/dL Aspartate Amino Transferase (AST) 25 13-40 U/L Alanine Aminotransferase (ALT) 21 7-40 U/L Alkaline Phosphatase 193 H 46-116 U/L Total Protein 6.4 5.7-8.2 g/dL Albumin 4.2 3.2-4.8 g/dL Rapid Plasma Reagin Pending Treponema pallidum Ab (TP-PA) Pending Hepatitis B Surface Antigen Negative Negative Hepatitis C Antibody Negative Negative Urine Color Light-yellow Yellow Urine Clarity Turbid H Clear Urine pH 6.0 5.0-9.0 Urine Specific [place] 1.017 1.001-1.035 Urine Protein Negative Negative Urine Ketones Negative Negative Urine Blood Negative Negative /uL Urine Nitrite Negative Negative Urine Bilirubin Negative Negative Urine Urobilinogen Normal Negative mg/dL Urine Leukocyte Esterase 2+ Negative /uL Urine RBC <1 0 - 4 /hpf Urine Microscopic WBC 12 H 0-5 /HPF Urine Squamous Epithelial Cells Few <5 /hpf Urine Bacteria None seen None Seen /hpf Urine Creatinine 87.01 30.0-125.0 mg/dL Urine Protein/Creatinine Ratio 0.25 Urine Glucose Normal Normal mg/dL Urine Total Protein 21.5 H 1-14 mg/dL Urine Opiates Screen Neg NEGATIVE Urine Fentanyl Screen Neg NEGATIVE Urine Barbiturates Screen Neg NEGATIVE Urine Phencyclidine Screen Neg NEGATIVE Urine Amphetamines Screen Neg NEGATIVE Urine Benzodiazepines Screen Neg NEGATIVE Urine Cocaine Screen Neg NEGATIVE Urine Cannabinoids Screen Neg NEGATIVE Assessment Assessment 18yo IUP@39.2wks Induction of Labor for PIH Category I EFM Intact Membranes GBS negative Plan Plan RN to start IV Pitocin per order Epidural in place monitoring per order Frequent position changes in bed encouraged Limit SVE unless necessary Intrauterine resuscitation PRN Anticipate CNM co-managing with Dr Rogers, who is managing PIH Plan discussed with: Patient, Other (Partner) Visit Coding OBGYN Date of Service: May 09, 2024 Billing Provider: KEENAN ARAIZA CNM DRILL PRESS HAND Common Visit Codes: [id number] INP/OBS CARE(HIGH) ZEINA STEWART STUDENTMDW May 09, 2024 21:39
[2024-05-09] MEDS: LACT. RINGERS/OXYTOCIN 20UNITS 1,000 ML IV SCH (22:33)
[2024-05-09] MEDS: ROPIVACAINE HCL 200 ML ONE (22:37)
[2024-05-10] MEDS ORDERED: hydrALAZINE HCL 20 MG/ML VL IV PRN (05:45)
--- NOTE | 2024-05-10 07:06 | DVHPN2 ---
Chief Complaints Patient reports: No new complaints, Feels better Nursing reports: No new complaints Objective Vitals Vital Signs Date Time Temp Pulse Resp B/P (MAP) Pulse Ox O2 Delivery O2 Flow Rate FiO2 05/09/24 22:00 79 117/67 Medications Current Medications Medications (Trade) Dose Ordered Sig/Nidhi Route PRN Reason Start Time Stop Time Status Last Admin Benzocaine (Dermoplast) 1 applic PRN PRN TOP PERINEAL AREA DISCOMFORT 05/09/24 08:00 05/09/24 17:04 Diphenhydramine HCl (Benadryl Injection) 25 mg Q6HP PRN IV FOR ITCHING 05/09/24 20:00 Hydralazine HCl (Apresoline Injection) 5 mg Q20MP PRN IV SBP>160 or DBP>95 05/10/24 05:45 Labetalol HCl (Normodyne Tablet) 200 mg Q12HR PO 05/09/24 11:00 05/09/24 11:13 Lactated Ringer's 1,000 ml @ 125 mls/hr Q8H IV 05/09/24 08:00 Lidocaine HCl (Xylocaine) 20 ml ONCE PRN IJ PERINEAL AREA DISCOMFORT 05/09/24 08:00 Misoprostol (Cytotec) 50 mcg Q4HPRN PRN PO CERVICAL RIPENING 05/09/24 10:30 05/09/24 12:35 Nalbuphine HCl (Nubain) 10 mg Q4HP PRN IV MODERATE PAIN (4-6 PAIN SCALE) 05/09/24 08:00 Oxytocin 1,000 ml @ 6 ml/hr Q24H IV 05/09/24 16:30 05/09/24 22:33 Sodium Lauryl Sulfate (Phisoderm) 240 ml PRN PRN TOP PERINEAL AREA DISCOMFORT 05/09/24 08:00 05/09/24 17:04 Terbutaline Sulfate (Brethine Inj) 0.25 mg ONCE PRN SC Uterine tachysystole 05/09/24 16:30 Deja Allred (Eboni) 1 pad PRN PRN TOP PERINEAL AREA DISCOMFORT 05/09/24 08:00 05/09/24 17:04 Others ve-4cm/50/-2 Studies Laboratory Tests 05/09/24 08:16 Test 05/09/24 08:16 Range/Units Serum Glucose 160 H 74-106 mg/dL Ass/Plan Assessment labor Plan cont with pitocin Visit Coding OBGYN Date of Service: May 10, 2024 Billing Provider: HAIR RUBI DO POULTRY SEXER Common Visit Codes: [id number] INP/OBS CARE(HIGH) HAIR RUBI DO May 10, 2024 07:06
[2024-05-10 08:07] LABS: RPR Non Reactive (Non Reactive)
[2024-05-10] MEDS: ROPIVACAINE HCL 200 ML ONE (12:28)
--- NOTE | 2024-05-10 13:08 | DVHPN2 ---
Chief Complaints Patient reports: No new complaints, Feels better Nursing reports: No new complaints Objective Vitals Vital Signs Date Time Temp Pulse Resp B/P (MAP) Pulse Ox O2 Delivery O2 Flow Rate FiO2 05/10/24 09:35 81 132/73 Medications Current Medications Medications (Trade) Dose Ordered Sig/Nidhi Route PRN Reason Start Time Stop Time Status Last Admin Diphenhydramine HCl (Benadryl Injection) 25 mg Q6HP PRN IV FOR ITCHING 05/09/24 20:00 Hydralazine HCl (Apresoline Injection) 5 mg Q20MP PRN IV SBP>160 or DBP>95 05/10/24 05:45 Oxytocin 1,000 ml @ 6 ml/hr Q24H IV 05/09/24 16:30 05/09/24 22:33 Terbutaline Sulfate (Brethine Inj) 0.25 mg ONCE PRN SC Uterine tachysystole 05/09/24 16:30 Others ve- 5/90/-2 Studies Laboratory Tests 05/09/24 08:16 Test 05/09/24 08:16 Range/Units Serum Glucose 160 H 74-106 mg/dL Ass/Plan Assessment labor Plan cont with pitocin Visit Coding OBGYN Date of Service: May 10, 2024 Billing Provider: HAIR RUBI DO CATALOGING ASSISTANT Common Visit Codes: [id number]/[id number] SAME DATE (HIGH) CATALOGING ASSISTANT Procedure Codes: [id number] NON-STRESS TEST HAIR RUBI DO May 10, 2024 13:08
[2024-05-10] MEDS: MAGNESIUM SULFATE 100 ML IV ONE ×2 (16:04→16:10)
[2024-05-10] MEDS: MAGNESIUM SULFATE 40MG/ML 1,000 ML IV SCH (16:24)
[2024-05-10] MEDS: CARBOPROST TROMETHAMINE 250 MCG/1ML VIAL IM ONE ×3 (16:59→17:49)
[2024-05-10] MEDS: DIPHENOXYLATE W/ATROPINE 2.5 MG TAB ONE (17:00)
[2024-05-10] MEDS: LACT. RINGERS/OXYTOCIN 20UNITS 500 ML IV ONE ×2 (17:16→17:17)
[2024-05-10] MEDS: ONDANSETRON HCL 4 MG/2 ML VIAL ONE (17:26)
[2024-05-10] MEDS ORDERED: DIPHENOXYLATE W/ATROPINE 2.5 MG TAB PO SCH (17:30)
[2024-05-10] MEDS: miSOPROStol 100 mcg TAB PR PRN (17:46)
[2024-05-10] MEDS: ONDANSETRON HCL 4 MG/2 ML VIAL IV PRN (17:49)
[2024-05-10] MEDS: DIPHENOXYLATE W/ATROPINE 2.5 MG TAB PO SCH (17:57)
--- NOTE | 2024-05-10 18:24 | LDN2 ---
Labor and Delivery Note Date 05/10/24 Age 18 1 Para 1 AB 0 EDC 05/14/2024 EGA 39.3 Diagnosis IOL for PIH then Vaginal Delivery: VTX Vacuum Assisted: No Placenta: Spontaneous Sex: Female Weight 3545 grams Apgars 8/8 Nuchal Cord Transected: No Amniotic Fluid: Clear Anesthesia epidural Episiotomy: No Extension: No Repaired with 2nd degree perineal laceration repaired with 3-[address]-1 EBL QBL: 800 mL Labs Laboratory Tests 05/09/24 08:16: Hepatitis B Surface Antigen Negative Blood Bank 05/09/24 08:16: Blood Type O POSITIVE Complications PPH: CNM at bedside for delivery. Fundus at U, midline. Firm to massage. VSS. Patient denies dizziness. Hemabate, Lomotil, Zofran, TXA, cytotec 800 mcg rectal given by RN. Manual sweep done, uterus cleared of all clots. Bi-manual compression done for boggy lower uterine segment. Ancef 2G IVPB x1 ordered and stat CBC/coags ordered. PIH: Dr. Rogers consulted; orders received to turn off magnesium sulfate infusion after recovery until midnight. Pt denies JOHNSON, dizziness, and visual changes. New saenz catheter inserted in recovery. Conditions Stable Chef'S Assistant Comments/Significant Med Mick At 1638 this 18yo now delivered a viable Female infant by w/ APGARS 8/8. ZAN. Infant placed skin to skin on pts chest. Cord clamped and cut after pulsation ceased. Cord blood sent. Intact 3-vessel cord placenta delivered spontaneously, Mallory. Pitocin IV bolus started. Placenta sent to pathology. Marino valentin had epidural. Cervix/vagina inspected (intact) and second degree perineal laceration present which was repaired with 3-0 vicryl suture. Dangling lacerated hymenal ring @ 4 o'clock noted, discussed attaching it back or tying and cutting it off with pt. Pt wants it to be tied off and cut. Dangling lacerated hymenal ring tied and cut off. Fundus at U, firm, midline, and light lochia. Rectal mucosa and sphincter intact. Rectal exam performed, WNL, not involved. QBL 800 ml. VSS. Count correct x2. Patient to care and baby to couplet care, both stable. Visit Coding OBGYN Date of Service: May 10, 2024 Billing Provider: KEENAN ARAIZA CNM MOVIE OPERATOR Common Visit Codes: [id number] INP/OBS CARE(HIGH) MOVIE OPERATOR Procedure Codes: 61857-20- NON-STRESS TEST, [id number] DEL IN CLUDING ABDIEL BEST STDT MDWF May 10, 2024 18:24
[2024-05-10 18:30] VITALS: RESP 16
[2024-05-10 19:12] LABS: Hematocrit 42.5 % (36.0-46.0); Hemoglobin 14.6 g/dL (12.2-16.2); Mean Corpuscular Hemoglobin 28.5 pg (28.0-32.0); Mean Corpuscular Hgb Conc. 34.2 g/dL (32.0-36.0); Mean Corpuscular Volume 83.3 fL (80.0-100.0); Platelet Count (auto) 183 10^3/uL (140-450); Red Blood Cells 5.11 10^6/uL (4.0-5.20)
[2024-05-10 19:20] LABS: White Blood Cell 31.5 10^3/uL (4.4-10.8)
[2024-05-10 19:23] LABS: Basophils % (manual) 0 (0.0-2.0); Blast Cells 0; Eosinophils % (manual) 0 (0-7); Metamyelocytes % 0; Myelocytes % 0; Promyelocytes % 0; Reactive Lymphocytes 0
[2024-05-10] MEDS: ceFAZolin 2 GM/D5W50ml 50 ML IV ONE (19:35)
[2024-05-10] MEDS ORDERED: ACETAMINOPHEN 325 MG TAB PO PRN (20:00)
[2024-05-10] MEDS: LORazepam 2MG/ML-1ML VIAL IV ONE (20:00)
[2024-05-10 20:39] LABS: INR 0.92 (0.9-1.15); Partial Thromboplastin Time 26.9 SEC (24.5-34.5); Prothrombin Time 9.8 sec (9.3-11.8)
[2024-05-10 20:47] LABS: Anisocytosis Slight; Band Neutrophils % (manual) 10; Lymphocytes % (manual) 2 (10.0-50.0); Monocytes % (manual) 3 (0-12); Platelet Estimate Adequate
[2024-05-10 22:00] VITALS: RESP 18
[2024-05-10 23:00] VITALS: BP 122/66; PULSE 92; TEMP 99.1; O2SAT 99
[2024-05-11] VITALS (19 sets, daily range): BP systolic 98–138; BP diastolic 54–89; PULSE 72–136; RESP 16–40; TEMP 98.1–98.9; O2SAT 96–100
--- NOTE | 2024-05-11 00:20 | DVHPN2 ---
Progress Note Date Seen: May 11, 2024 Subjective S: bleeding is less, eating food without issues, denies lightheaded/dizziness, pain well controlled with oral medications, no concerns with urinating, passing flatus, no BM yet, ambulating well, well. Denies JOHNSON/vision changes/RUQ pain. vital signs Vital Sign Date Time Temp Pulse Resp B/P (MAP) Pulse Ox O2 Delivery O2 Flow Rate FiO2 05/10/24 22:56 92 122/66 medications Current Medications Medications Dose Ordered Sig/Nidhi Route Start Time Stop Time Status Last Admin Dose Admin Lactated Ringer's 1,000 ml @ 125 mls/hr Q8H IV 05/09/24 08:00 Deja Allred 1 pad PRN PRN TOP 05/09/24 08:00 05/09/24 17:04 1 PAD Sodium Lauryl Sulfate 240 ml PRN PRN TOP 05/09/24 08:00 05/09/24 17:04 240 ML Benzocaine 1 applic PRN PRN TOP 05/09/24 08:00 05/09/24 17:04 1 APPLIC Labetalol HCl 200 mg Q12HR PO 05/09/24 11:00 05/10/24 22:04 200 MG Diphenhydramine HCl 25 mg Q6HP PRN IV 05/09/24 20:00 Hydralazine HCl 5 mg Q20MP PRN IV 05/10/24 05:45 Magnesium Sulfate 1,000 ml @ 50 mls/hr Q20H IV 05/10/24 15:45 05/10/24 16:24 50 MLS/HR Ondansetron HCl 4 mg Q4HP PRN IV 05/10/24 17:30 05/10/24 17:53 4 MG Misoprostol 800 mcg ONCE PRN RI 05/10/24 17:30 05/10/24 17:46 800 MCG Diphenoxylate HCl/ Atropine 5 mg Q12H PO 05/10/24 18:00 05/10/24 17:57 5 MG Ibuprofen 600 mg Q6HP PRN PO 05/10/24 20:00 Acetaminophen 650 mg Q4HP PRN PO 05/10/24 20:00 Docusate Sodium 200 mg HS PO 05/10/24 22:00 Cefazolin Sodium/ Dextrose 50 ml @ 50 mls/hr Q8HR IV 05/11/24 03:30 laboratory and microbiology Laboratory Tests 05/10/24 18:48 05/09/24 08:16 Test 05/09/24 08:16 Range/Units Serum Glucose 160 H 74-106 mg/dL Objective O: VSS Chest: heart sounds normal and lung sounds clear bilaterally Abd: soft, non-tender, fundus at U/firm/midline, active bowel sounds, no rebound or guarding Perineum: sutures intact, edges well approximated, mild edema noted Ext: Non-tender, No edema, 2+ BLE DTRs Lochia: minimal See lab results Magnesium sulfate infusion restarted at 2g/hr per Dr. Spencer order Problems(with codes): (1) (normal spontaneous vaginal delivery) (2) Second degree perineal laceration during delivery (3) PPH ( hemorrhage) (4) PIH ( induced hypertension) Assessment/Plan A/P: 18yo now PPD#1 s/p Preeclampsia -Continue with seizure precautions and strict I&O -Dr. Rogers is managing PIH -Continue with routine PP care and monitor lochia Plan discussed with: Patient, Other (Partner) Visit Coding OBGYN Date of Service: May 11, 2024 Billing Provider: KEENAN ARAIZA CNM GRAPHITE DISK ASSEMBLER Common Visit Codes: [id number] INP/OBS CARE(HIGH) ABDIEL BEST MDWF May 11, 2024 00:20
--- NOTE | 2024-05-11 00:26 | DVHDS2 ---
Obstetrics Discharge Summary Obstetrics Discharge Summary Date of Admission: May 09, 2024 Date of Discharge: May 11, 2024 Reason For Admission: Induction of Labor Procedures: NST, Ultrasound, Mgmt of Obstetrics Compli (PIH) Intrapartum Procedures: Spontaneous vaginal deliv Procedures: Antibiotics, Hct/date: (05/10/24), Hgb/date: (05/10/24) Operative Complicat: Laceration (2nd degree Perineal) Discharge Diagnosis: Term -Delivered, Preeclampsia Discharge Information: Activity (as tolerated, no heavy lifting and nothing in the vagina for 6 weeks), Diet (Routine), Medications (rx sent), Instructions (Routine), Discharge to (Home), Accompanied by (partner), Discarge date (05/11/24) Visit Coding OBGYN Date of Service: May 11, 2024 Billing Provider: KEENAN ARAIZA CNM DISPLAY DIRECTOR Common Visit Codes: [id number]-SPK/OBS DISCH DAY <30MIN ABDIEL BEST MDWF May 11, 2024 00:26
[2024-05-11] MEDS: DOCUSATE SOD 100 MG CAP PO SCH (00:32)
[2024-05-11] MEDS: IBUPROFEN 600 MG TAB PO PRN (00:32)
[2024-05-11] MEDS ORDERED: cefTRIAXone 1GM/50ML D5W 0 ML IV ONE (03:18)
[2024-05-11] MEDS: ceFAZolin 1GM VL ONE (03:23)
[2024-05-11] MEDS: ceFAZolin 2 GM/D5W50ml 50 ML IV SCH (03:28)
[2024-05-11 06:46] LABS: Basophils # (auto) 0.1 10 ^3/uL (0-0.2); Basophils % (auto) 0.3 % (0.0-2.0); Eosinophils # (auto) 0 10 ^3/uL (0-0.8); Eosinophils % (auto) 0.2 % (0.0-7.0); Hematocrit 36.5 % (36.0-46.0); Hemoglobin 12.5 g/dL (12.2-16.2); Lymphocytes # (auto) 1.4 10 ^3/uL (0.4-5.4); Lymphocytes % (auto) 7.4 % (10.0-50.0); Mean Corpuscular Hemoglobin 28.4 pg (28.0-32.0); Mean Corpuscular Hgb Conc. 34.3 g/dL (32.0-36.0); Mean Corpuscular Volume 82.8 fL (80.0-100.0); Monocytes # (auto) 1.7 10 ^3/uL (0-1.3); Monocytes % (auto) 8.8 % (0.0-12.0); Neutrophils # (auto) 16.4 10 ^3/uL (1.6-8.6); Neutrophils % (auto) 83.3 % (37.0-80.0); Nucleated Red Blood Cells % 0.2 %; Platelet Count (auto) 176 10^3/uL (140-450); White Blood Cell 19.7 10^3/uL (4.4-10.8)
[2024-05-11 06:59] LABS: Alanine Aminotransferase 13 U/L (7-40); Albumin 3.2 g/dL (3.2-4.8); Aspartate Aminotransferase 28 U/L (13-40); BUN/Creatinine Ratio 15.2 (10.0-20.0); Bilirubin, Total 0.7 mg/dL (0.2-1.0); Blood Urea Nitrogen 10 mg/dL (9-23); Calcium 8.7 mg/dL (8.7-10.4); Chloride 103 mmol/L (98-107); Glucose 106 mg/dL (74-106); Potassium 4.1 mmol/L (3.5-5.1); Sodium 137 mmol/L (136-145); Uric Acid 6.9 mg/dL (3.1-7.8)
[2024-05-11 07:06] LABS: Alkaline Phosphatase 149 U/L (46-116); Total Protein 4.8 g/dL (5.7-8.2)
[2024-05-11 07:12] LABS: Anion Gap 11 (5-15); Carbon Dioxide 23 mmol/L (20-31)
[2024-05-11 08:31] LABS: INR 0.91 (0.9-1.15); Partial Thromboplastin Time 26.8 SEC (24.5-34.5); Prothrombin Time 9.7 sec (9.3-11.8)
[2024-05-12 03:00] VITALS: BP 126/60; PULSE 75; RESP 18; TEMP 98; O2SAT 97
--- NOTE | 2024-05-12 03:52 | DVHDS2 ---
Obstetrics Discharge Summary Obstetrics Discharge Summary Date of Admission: May 09, 2024 Date of Discharge: May 12, 2024 Reason For Admission: Induction of Labor Procedures: Mgmt of Obstetrics Compli Intrapartum Procedures: Spontaneous vaginal deliv Procedures: None Operative Complicat: Laceration (Perineal) Discharge Diagnosis: Term -Delivered Discharge Information: Activity (Pelvic rest), Diet (Regular), Medications (Motrin, Colace, vits), Instructions (Routine), Discharge to (Home) Visit Coding OBGYN Date of Service: May 12, 2024 Billing Provider: LAY GREENBERG CNM PHYSICAL THERAPY PROFESSOR Common Visit Codes: 06453-XQV/OBS DISCH DAY <30MIN PHYSICAL THERAPY PROFESSOR Procedure Codes: [id number] DEL INCLUDING LAY GREENBERG CNM May 12, 2024 03:52
--- NOTE | 2024-05-12 04:01 | DVHPN2 ---
Chief Complaints Patient reports: No new complaints (Coping well. Denies any sx. No h/a, epigastric pain or visual change Ambulates and voids freely. Denies blues. Desires to go home. ) Nursing reports: No new complaints Objective Vitals Vital Signs Date Time Temp Pulse Resp B/P (MAP) Pulse Ox O2 Delivery O2 Flow Rate FiO2 05/12/24 03:00 98.0 75 18 126/60 (82) 97 98.0 05/11/24 19:00 Room Air General: Normal Lungs: Normal, Normal breath sounds, Lungs clear Cardiovascular: Normal, Regular rate and rhythm Abdominal: Normal (Fundus firm, 2fb below umbilicus, non tender) Musculoskeletal: Normal Extremities: Normal (Mannie's neg) Skin: Normal Others Breasts soft, nipples intact Perineum without edema, lochia minimal, no odor Studies Laboratory Tests 05/11/24 05:15 Test 05/11/24 05:15 Range/Units Serum Glucose 106 74-106 mg/dL Ass/Plan Assessment 2nd PP day S/P Pre-Eclampsia - normotensive Desires to go home Plan D/c home with instructions RTC 2 weeks and PRN LAY GREENBERG CNM May 12, 2024 04:01
[2024-05-12 07:30] VITALS: BP 117/70; PULSE 79; RESP 18; TEMP 98.4; O2SAT 98
[2024-05-12] MEDS: TETANUS-DIPTH-ACEL PERTUSSIS 0.5ML SYR Tdap IM ONE (11:20)
[2024-05-12 11:30] VITALS: BP 110/69; PULSE 88; RESP 18; TEMP 98.1; O2SAT 98
[2024-05-12 12:07] LABS: Treponema Pallidum Ab LC Non Reactive (Non Reactive)
== END 2024-05-12 13:46 | disposition home or self-care (01) | DRG 560 ==
LOC: LDRP 07:47 → OBSVTOIN 07:47
PROVIDERS: ADMIT Obstetrics & Gynecology; ATTEND Obstetrics & Gynecology
PROC: 10E0XZZ Delivery of Products of Conception, External Approach (ICD-10-PCS; principal; 2024-05-10)
PROC: 0KQM0ZZ Repair Perineum Muscle, Open Approach (ICD-10-PCS; 2024-05-10)
PROC: 3E033VJ Introduction of Other Hormone into Peripheral Vein, Percutaneous Approach (ICD-10-PCS; 2024-05-10)
PROC: 3E0DXGC Introduction of Other Therapeutic Substance into Mouth and Pharynx, External Approach (ICD-10-PCS; 2024-05-10)
PROC: 3E0R3BZ Introduction of Anesthetic Agent into Spinal Canal, Percutaneous Approach (ICD-10-PCS; 2024-05-10)
PROC: 00HU33Z Insertion of Infusion Device into Spinal Canal, Percutaneous Approach (ICD-10-PCS; 2024-05-10)
DX: O13.4 Gestational [pregnancy-induced] hypertension without significant proteinuria, complicating childbirth (principal); Z37.0 Single live birth; O14.94 Unspecified pre-eclampsia, complicating childbirth; O72.1 Other immediate postpartum hemorrhage; O99.344 Other mental disorders complicating childbirth; O70.1 Second degree perineal laceration during delivery; Z3A.39 39 weeks gestation of pregnancy; Z79.1 Long term (current) use of non-steroidal anti-inflammatories (NSAID); Z79.899 Other long term (current) drug therapy
CPT/HCPCS: 36415; 59025; 59200; 59409; 62282; 80053; 80307; 81001; 82570; 83605; 83735; 84156; 84550; 85007; 85025; 85027; 85610; 85730; 86592; 86780; 86803; 86850; 86900; 86901; 87340; 90715; 94760; 94762; 96360; 96361; 96365; 96366; 96372; 96374; G0378; J0690; J2405; J2590